=== PATIENT | female | born 1995 | race Caucasian/White ===

== ENCOUNTER 2018-06-13 12:45 | Emergency (ER) | payer OTHER, BC ==
--- NOTE | 2018-06-13 12:48 | ER Report ---
History and Physical Time Seen By MD: 12:47 HPI/ROS CHIEF COMPLAINT: Possible blood borne pathogen exposure HISTORY OF PRESENT ILLNESS: Patient is a 23-year-old female who was working as a dental bookkeeping assistant. She states that she was moving some dental that have been soaking and germicide and ended up taking a small neck in the palm of the left hand. Patient did not see any visible blood on the equipment. And the equipment did not come directly from the patient's mouth but rather was sitting and germicide. There is no other complaints and is here for evaluation and because this was a work-related injury and she is requesting an exposure panel be drawn. Past Medical/Surgical History Noncontributory (chief complaint Constitutional Vital Sign - Last 24 Hours 06/13/18 12:52 Temp 98.2 Pulse 74 Resp 14 B/P (MAP) 109/70 Pulse Ox 94 O2 Delivery Room Air Physical Exam Examination of the skin reveals a very small punctate wound to the dorsum of the thumb without significant surrounding erythema. No other injuries identified. Medical Decision Making Data Points Laboratory Hematology Test 06/13/18 13:26 HIV (1&2) Antibody Negative (NEGATIVE) Chemistry Test 06/13/18 13:26 HIV (1&2) Antibody Negative (NEGATIVE) ED Course/Re-evaluation ED Course Perform an exposure panel. Based on CDC guidelines patient is not recommended routine post exposure phylaxis as the risk of transmission is extremely low. Decision to Disposition Date: Jun 13, 2018 Decision to Disposition Time: 13:12 Depart Departure Latest Vital Signs Vital Signs Date Time Temp Pulse Resp B/P (MAP) Pulse Ox O2 Delivery O2 Flow Rate FiO2 06/13/18 12:52 98.2 74 14 109/70 94 Room Air Impression: Primary Impression: Exposure to blood-borne pathogen Condition: Condition Unchanged Disposition: HOME OR SELF-CARE Patient Instructions: Body Substance Exposure (GEN) Additional Instructions: You should follow up with your primary care provider within 30 days to determine if further exposure panel testing is required. KENNEDI JONES MD Jun 13, 2018 12:48
[2018-06-13 12:52] VITALS: BP 109/70
== END 2018-06-13 13:36 | disposition home or self-care (01) ==
LOC: ER 12:51
DX: Z77.21 Contact with and (suspected) exposure to potentially hazardous body fluids (principal)
CPT/HCPCS: 86703; 86706; 86803; 87340; 99282